=== PATIENT | female | born 1990 | race Caucasian/White ===

== ENCOUNTER 2016-12-16 05:05 | Inpatient (IN) | payer OTHER ==
[2016-12-16 05:52] LABS: Urine Bacteria Absent (Absent); Urine Bilirubin Negative (Negative); Urine Glucose Negative (Negative); Urine Nitrite Negative (Negative)
[2016-12-16 05:58] LABS: Hematocrit 32 % (35-47); Hemoglobin 10.7 g/dl (12.0-16.0); Mean Corpuscular HGB Conc 34 g/dl (31-36); Mean Corpuscular Hemoglobin 28 pg (27-31); Mean Corpuscular Volume 82 fL (80-97); Mean Platelet Volume 11 um3 (7.4-10.4); Red Blood Count 3.86 10^6/ul (4.0-5.4); Red Cell Distribution Width 14 % (10.5-15); White Blood Count 11.7 10^3/ul (3.5-10.8)
[2016-12-16] MEDS ORDERED: OBEPIDURAL* 250 ML ONE (06:20)
[2016-12-16] MEDS ORDERED: EPHEDrine (Pressors)* 50 MG/ML VIAL IV PUSH PRN (06:41)
[2016-12-16] MEDS ORDERED: Sodium Citrate/Citric Acid* 15 ML UDC PO PRN (06:41)
[2016-12-16] MEDS ORDERED: Famotidine TAB* 20 MG PO PRN (06:41)
[2016-12-16] MEDS ORDERED: Phenylephrine IV* 40 MCG/ML 10 ML SYRINGE IV PUSH PRN (06:41)
[2016-12-16 07:27] LABS: Benzodiazepine Urine Screen None Detected (None Detect)
[2016-12-16] MEDS ORDERED: Oxytocin in LR* 20 UNITS/1,000 ML BAG IVPB ONE (11:24)
[2016-12-16] MEDS ORDERED: Oxytocin in LR* 20 UNITS/1,000 ML BAG IVPB SCH ×2 (12:00→16:00)
[2016-12-16] MEDS ORDERED: Sodium Citrate/Citric Acid* 15 ML UDC ONE (13:10)
[2016-12-16] MEDS ORDERED: ceFOXitin 2 GM IVPREMIX* 2 GM/50 ML BAG ONE (13:11)
[2016-12-16] MEDS ORDERED: Ketorolac INJ* 30 MG/ML 1 ML VIAL IV PRN ×2 (14:14→14:15)
[2016-12-16] MEDS ORDERED: Ondansetron INJ* 2 MG/ML VIAL IV PRN ×2 (14:14→14:15)
[2016-12-16] MEDS ORDERED: Naloxone* 0.4 MG/ML 1 ML VIAL IV PRN (14:15)
[2016-12-16] MEDS ORDERED: diPHENhydraMINE IV* 50 MG/ML 1 ml VIAL (BENADRYL) IV PRN (14:15)
[2016-12-16] MEDS ORDERED: oxyCODONE/Acetamin 5/325 MG* TAB PO PRN (14:15)
[2016-12-16] MEDS ORDERED: fentaNYL* 50 MCG/ML 2 ML VIAL (100 MCG VIAL) ONE (14:49)
[2016-12-16] MEDS: fentaNYL* 50 MCG/ML 2 ML VIAL (100 MCG VIAL) IV PRN ×3 (14:51→15:49)
[2016-12-16] MEDS ORDERED: Tetan/Diph/Pertus SYR(Tdap)* 0.5 ML SYR(BOOSTRIX) use SYR IM ONE (15:05)
[2016-12-16] MEDS ORDERED: Witch Hazel PAD* JAR TOPICAL PRN (15:05)
[2016-12-16] MEDS ORDERED: Dibucaine 1% 28.35 GM TUBE PR PRN (15:05)
[2016-12-16] MEDS ORDERED: Glycerin ADULT SUPP PR PRN (15:05)
[2016-12-16] MEDS ORDERED: Acetaminophen TAB* 325 MG PO PRN (15:05)
[2016-12-16] MEDS: Simethicone TAB* 80 MG TAB.CHEW PO SCH ×2 (18:02→20:02)
[2016-12-16] MEDS: Ibuprofen TAB* 600 MG PO PRN ×2 (18:02→23:57)
[2016-12-16] MEDS: oxyCODONE/Acetamin 5/325 MG* TAB PO PRN (19:59)
[2016-12-16] MEDS: Docusate CAP* 100 MG PO SCH (20:00)
[2016-12-17] MEDS: oxyCODONE/Acetamin 5/325 MG* TAB PO PRN ×4 (04:41→23:54)
[2016-12-17] MEDS ORDERED: Zolpidem TAB* 5 MG PO PRN (05:00)
[2016-12-17] MEDS: Ibuprofen TAB* 600 MG PO PRN ×4 (06:26→23:54)
[2016-12-17 07:09] LABS: Hematocrit 30 % (35-47); Hemoglobin 10.3 g/dl (12.0-16.0); Mean Corpuscular HGB Conc 34 g/dl (31-36); Mean Corpuscular Hemoglobin 28 pg (27-31); Mean Corpuscular Volume 82 fL (80-97); Mean Platelet Volume 10 um3 (7.4-10.4); Red Blood Count 3.65 10^6/ul (4.0-5.4); Red Cell Distribution Width 14 % (10.5-15); White Blood Count 10.4 10^3/ul (3.5-10.8)
--- NOTE | 2016-12-17 07:10 | OP ---
OPERATIVE REPORT: DATE OF OPERATION: 12/16/16 DATE OF : 88 SURGEON: Kan Hines MD SHIRT PRESSER: Xochilt Victoria ANESTHESIA: Epidural. PRE-OP DIAGNOSES: Category 2 tracing, remote from delivery, arrest of descent, and meconium. POST-OP DIAGNOSES: Category 2 tracing, remote from delivery, arrest of descent, and meconium. OPERATIVE PROCEDURE: Low transverse section. ESTIMATED BLOOD LOSS: 600 mL. FINDINGS: Include a viable male, Apgars 9 and 9, weight was 8 pounds 10 ounces, and normal-appearin g uterus, fallopian tubes, and ovaries. INDICATIONS: This is a 26-year-old 1 para 0, who presented in active labor and received an epidural with spontaneously ruptured membranes and progressed slowly up to 8 cm. At that time, baby continued to have variable decels that were with good recovery with moderate variability. Contract ions were 4 minutes apart. At this point, Pitocin was started, but the variables got close and more prolonged despite left lateral recumbent position and IV fluids, and a decision was made to proceed with section. At the time of , the above findings were noted. DESCRIPTION OF PROCEDURE: The patient identified and procedure identified as low transverse cesarea n section. The patient was taken to the operating room, prepped and draped in the usual fashion in the left lateral recumbent position under epidural anesthesia. A Pfannenstiel incision was made in the abdomen and carried down through fat, fascia, and peritoneum. A transverse incision was made in the lower uterine segment and extended laterally using blunt dissection. The above infant was deli kieran through the incision with ease. The cord was doubly clamped and cut and the was handed to the awaiting grades 9 through 12 teacher. Cord blood was obtained. Placenta delivered spontaneously. The [place] virgilio was wiped out with a wet lap sponge. The uterine incision was then closed using 0 Polysorb in a running fashion. A second layer was used to imbricate the first layer. Good hemostasis was verifi ed. The uterus was packed in the abdominal cavity. The gutters were wiped out with a wet lap spong e. Good hemostasis was verified. The peritoneum was closed using 3-0 Polysorb in a running fashion . Good hemostasis achieved in the subrectus layers. The fascia was closed using 0 Polysorb in a ru nning fashion. Hemostasis achieved in the subcu and the skin was closed with 4-0 Monocryl in a subcu ticular fashion and Steri-Strips were applied. All sponge and instrument counts were correct and th e patient returned to the recovery room in stable condition. [id number] #: [id number]
[2016-12-17] MEDS ORDERED: Ferrous Gluconate TAB* 324 MG TAB PO SCH (09:00)
[2016-12-17] MEDS: Simethicone TAB* 80 MG TAB.CHEW PO SCH ×4 (12:02→19:59)
[2016-12-17] MEDS: Docusate CAP* 100 MG PO SCH ×2 (12:02→20:00)
[2016-12-18] MEDS: oxyCODONE/Acetamin 5/325 MG* TAB PO PRN ×4 (03:55→21:17)
[2016-12-18] MEDS: Ibuprofen TAB* 600 MG PO PRN ×3 (07:38→21:17)
[2016-12-18] MEDS: Docusate CAP* 100 MG PO SCH ×4 (07:38→21:32)
[2016-12-18] MEDS: Simethicone TAB* 80 MG TAB.CHEW PO SCH ×4 (07:39→21:32)
[2016-12-18] MEDS: OBEPIDURAL* 250 ML EPIDURAL SCH (08:15)
--- NOTE | 2016-12-18 08:49 | PTEDU ---
Patient Name: JESUS WEINBERG JESUS WEINBERG selected video: Never Ever Shake a Baby to view on 12/18/2016 at 8:46:57 AM from [facility] [place] [id number]
[2016-12-19] MEDS: Simethicone TAB* 80 MG TAB.CHEW PO SCH (07:58)
[2016-12-19] MEDS: Docusate CAP* 100 MG PO SCH (07:58)
[2016-12-19] MEDS: Ibuprofen TAB* 600 MG PO PRN (07:58)
[2016-12-19] MEDS: oxyCODONE/Acetamin 5/325 MG* TAB PO PRN (07:58)
[2016-12-19 08:15] VITALS: BP 156/68
== END 2016-12-19 11:44 | disposition home or self-care (01) | DRG 540 ==
LOC: MCHOB 05:05
PROVIDERS: ADMIT Obstetrics & Gynecology; ATTEND Obstetrics & Gynecology
PROC: 10D00Z1 Extraction of Products of Conception, Low, Open Approach (ICD-10-PCS; principal; 2016-12-16 13:30)
DX: O32.4XX0 Maternal care for high head at term, not applicable or unspecified (principal); O76 Abnormality in fetal heart rate and rhythm complicating labor and delivery; O99.824 Streptococcus B carrier state complicating childbirth; O77.0 Labor and delivery complicated by meconium in amniotic fluid; Z3A.39 39 weeks gestation of pregnancy; Z37.0 Single live birth
CPT/HCPCS: 36415; 80307; 81003; 81015; 85025; 85027; 87086; A9270-GY; J0694; J2540; J3010